=== PATIENT | female | born 1955 | race Caucasian/White ===

== ENCOUNTER 2017-12-24 15:56 | Inpatient (IN) | payer BC, OTHER ==
[2017-12-24 16:52] LABS: ADD MAN DIFF? NO
[2017-12-24] MEDS: IV NORMAL SALINE 1000ML BAG 1,000 ML IV (16:52)
[2017-12-24 16:56] LABS: BASO # 0.1 x10^3/uL (0.0-0.2); BASO % 1 % (0-3); EOS # 0.3 x10^3/uL (0.0-0.7); EOS % 5 % (0-3); HEMATOCRIT 37.2 % (36.0-47.0); HEMOGLOBIN 12.4 g/dL (12.0-15.5); LYMPH # 0.6 x10^3/uL (1.0-4.8); LYMPH % 12 % (24-48); MEAN CORPUSCULAR HEMOGLOBIN 31 pg (25-35); MEAN CORPUSCULAR HGB CONC 33 g/dL (31-37); MEAN CORPUSCULAR VOLUME 93 fL (79-100); MONO # 0.4 x10^3/uL (0.0-1.1); MONO % 8 % (0-9); NEUT # 3.8 x10^3uL (1.8-7.7); NEUT % 74 % (31-73); PLATELET COUNT 276 x10^3/uL (140-400); RED BLOOD COUNT 4.02 x10^6/uL (3.50-5.40); RED CELL DISTRIBUTION WIDTH 14.1 % (11.5-14.5); WHITE BLOOD COUNT 5.1 x10^3/uL (4.0-11.0)
[2017-12-24 17:05] LABS: PARTIAL THROMBOPLASTIN TIME 31 SEC (24-38)
[2017-12-24 17:09] LABS: ANION GAP 9 (6-14); BLOOD UREA NITROGEN 16 mg/dL (7-20); BUN/CREATININE RATIO 18 (6-20); CALCIUM 9.3 mg/dL (8.5-10.1); CARBON DIOXIDE 27 mmol/L (21-32); CHLORIDE 100 mmol/L (98-107); CREATININE 0.9 mg/dL (0.6-1.0); GFR 63.9; GLUCOSE 111 mg/dL (70-99); POTASSIUM 4.8 mmol/L (3.5-5.1); SODIUM 136 mmol/L (136-145)
[2017-12-24 17:15] LABS: ALBUMIN 2.8 g/dL (3.4-5.0); ALBUMIN/GLOBULIN RATIO 0.7 (1.0-1.7); ALK PHOS 107 U/L (46-116); ALT (SGPT) 22 U/L (14-59); AST (SGOT) 24 U/L (15-37); TOTAL BILIRUBIN 0.6 mg/dL (0.2-1.0); TOTAL PROTEIN 6.9 g/dL (6.4-8.2)
[2017-12-24 17:39] LABS: BILIRUBIN,URINE NEGATIVE (NEG); CLARITY,URINE CLEAR; COLOR,URINE YELLOW; GLUCOSE,URINE NEGATIVE (NEG); NITRITE,URINE NEGATIVE (NEG); PROTEIN,URINE NEGATIVE (NEG-TRACE); UROBILINOGEN,URINE 0.2 mg/dL (0.2 mg/dL)
[2017-12-24 17:59] LABS: BARBITURATES NEG (NEG); BENZODIAZEPINES POS (NEG); CANNABINOIDS NEG (NEG); COCAINE NEG (NEG); METHADONE NEG (NEG); OPIATES POS (NEG); PHENCYCLIDINE NEG (NEG)
[2017-12-24 18:01] LABS: AMPHETAMINE/METHAMPHETAMINE NEG (NEG); ETHANOL, URINE NEG (NEG)
[2017-12-24 18:30] LABS: AMORPHOUS SEDIMENT,UR PRESENT /HPF; BACTERIA,URINE 0 /HPF (0-FEW); HYALINE CASTS, URINE FEW /HPF; RBC,URINE 0 /HPF (0-2); SQUAMOUS EPITHELIAL CELL,UR OCC /LPF; WBC,URINE RARE /HPF (0-4)
[2017-12-24] MEDS ORDERED: ACETAMINOPHEN 325 MG TABLET. PO (21:00)
[2017-12-24] MEDS ORDERED: ONDANSETRON PF 4 MG/2 ML VIAL. IV (21:00)
[2017-12-25] MEDS: IV NORMAL SALINE 1000ML BAG 1,000 ML IV ×2 (00:05→14:47)
[2017-12-25] MEDS: HYDROcodone/APAP 10/325 1 TAB TABLET PO ×3 (00:05→21:05)
[2017-12-25 05:53] LABS: ADD MAN DIFF? NO
[2017-12-25 06:09] LABS: BASO % 1 % (0-3); EOS # 0.2 x10^3/uL (0.0-0.7); EOS % 6 % (0-3); HEMATOCRIT 32.8 % (36.0-47.0); HEMOGLOBIN 11.2 g/dL (12.0-15.5); LYMPH # 0.8 x10^3/uL (1.0-4.8); LYMPH % 20 % (24-48); MEAN CORPUSCULAR HEMOGLOBIN 32 pg (25-35); MEAN CORPUSCULAR HGB CONC 34 g/dL (31-37); MEAN CORPUSCULAR VOLUME 93 fL (79-100); MONO # 0.4 x10^3/uL (0.0-1.1); MONO % 10 % (0-9); NEUT # 2.4 x10^3uL (1.8-7.7); NEUT % 62 % (31-73); PLATELET COUNT 243 x10^3/uL (140-400); RED BLOOD COUNT 3.54 x10^6/uL (3.50-5.40); RED CELL DISTRIBUTION WIDTH 14.1 % (11.5-14.5); WHITE BLOOD COUNT 3.9 x10^3/uL (4.0-11.0)
[2017-12-25 06:25] LABS: ANION GAP 7 (6-14); BLOOD UREA NITROGEN 11 mg/dL (7-20); CALCIUM 9.3 mg/dL (8.5-10.1); CARBON DIOXIDE 27 mmol/L (21-32); CHLORIDE 102 mmol/L (98-107); CREATININE 0.8 mg/dL (0.6-1.0); GFR 73.2; GLUCOSE 91 mg/dL (70-99); POTASSIUM 3.9 mmol/L (3.5-5.1); SODIUM 136 mmol/L (136-145)
[2017-12-25] MEDS ORDERED: NON FORMULARY ITEM (Albuterol Sulfate (Proair Hfa Inhaler) 1 PUFF) INH (16:45)
[2017-12-25] MEDS ORDERED: ACETAMINOPHEN 325 MG TABLET. PO (16:45)
[2017-12-25] MEDS ORDERED: ALBUTEROL SULFATE 2.5 MG/3 ML NEBU. NEB (17:00)
[2017-12-25] MEDS: POTASSIUM CHLORIDE 10 MEQ TABLET.ER. PO (18:00)
[2017-12-25] MEDS: LETROZOLE 2.5 MG TABLET. PO (18:01)
[2017-12-25] MEDS: traZODone 50 MG TABLET. PO (21:05)
[2017-12-25] MEDS: ALPRAZolam 1 MG TABLET PO (21:05)
[2017-12-25] MEDS: QUEtiapine 25 MG TABLET. PO (21:05)
[2017-12-25] MEDS: hydrOXYzine PAMOATE 25 MG CAPSULE PO (21:08)
[2017-12-25 22:16] LABS: MRSA BY PCR Negative (Negative)
[2017-12-26 04:55] LABS: ANION GAP 10 (6-14); BLOOD UREA NITROGEN 10 mg/dL (7-20); CARBON DIOXIDE 26 mmol/L (21-32); CHLORIDE 104 mmol/L (98-107); CREATININE 0.7 mg/dL (0.6-1.0); GFR 85.4; GLUCOSE 83 mg/dL (70-99); POTASSIUM 4.1 mmol/L (3.5-5.1); SODIUM 140 mmol/L (136-145)
[2017-12-26 09:37] LABS: ADD MAN DIFF? NO
[2017-12-26] MEDS: QUEtiapine 25 MG TABLET. PO (09:39)
[2017-12-26] MEDS: traZODone 50 MG TABLET. PO (09:39)
[2017-12-26] MEDS: HYDROcodone/APAP 10/325 1 TAB TABLET PO (09:39)
[2017-12-26] MEDS: hydrOXYzine PAMOATE 25 MG CAPSULE PO (09:39)
[2017-12-26] MEDS: POTASSIUM CHLORIDE 10 MEQ TABLET.ER. PO (09:41)
[2017-12-26] MEDS: LETROZOLE 2.5 MG TABLET. PO (09:41)
[2017-12-26 09:42] LABS: BASO % 1 % (0-3); EOS # 0.2 x10^3/uL (0.0-0.7); EOS % 6 % (0-3); HEMATOCRIT 36.9 % (36.0-47.0); HEMOGLOBIN 12.4 g/dL (12.0-15.5); LYMPH # 0.9 x10^3/uL (1.0-4.8); LYMPH % 22 % (24-48); MEAN CORPUSCULAR HEMOGLOBIN 32 pg (25-35); MEAN CORPUSCULAR HGB CONC 34 g/dL (31-37); MEAN CORPUSCULAR VOLUME 95 fL (79-100); MONO # 0.4 x10^3/uL (0.0-1.1); MONO % 11 % (0-9); NEUT # 2.4 x10^3uL (1.8-7.7); NEUT % 61 % (31-73); PLATELET COUNT 249 x10^3/uL (140-400); RED BLOOD COUNT 3.88 x10^6/uL (3.50-5.40); RED CELL DISTRIBUTION WIDTH 14.2 % (11.5-14.5)
[2017-12-28] MEDS ORDERED: ERGOCALCIFEROL (VITAMIN D2) 50,000 UNIT CAPSULE. PO (09:00)
== END 2017-12-26 15:40 | disposition home or self-care (01) | DRG 598 ==
LOC: ER 15:56 → 6 SOUTH 19:15
DX: C50.911 Malignant neoplasm of unspecified site of right female breast (principal); C79.51 Secondary malignant neoplasm of bone; F20.9 Schizophrenia, unspecified; R29.6 Repeated falls; W19.XXXA Unspecified fall, initial encounter; Z83.3 Family history of diabetes mellitus; Z90.89 Acquired absence of other organs; Z88.8 Allergy status to other drugs, medicaments and biological substances; Z17.0 Estrogen receptor positive status [ER+]; Y92.129 Unspecified place in nursing home as the place of occurrence of the external cause; Y93.89 Activity, other specified; Y99.8 Other external cause status; Z79.811 Long term (current) use of aromatase inhibitors
CPT/HCPCS: 36415; 70450; 72125; 80048; 80053; 80307; 81001; 83735; 85025; 85610; 85730; 87641; 93005; 96360; 96361; 99285; 99285-25; J7030; Q0177

== ENCOUNTER 2019-01-09 03:35 | Emergency (ER) | payer MEDICARE, MEDICAID ==
[~2019-01-09] VITALS: Ht 152.4 cm; Wt 173.3 kg
[~2019-01-09 03:35] MED LIST: ACET325T9 PO; ALBU2.5V8 INH; ALPR1TAB2 PO; ERGO500027 PO; HYDR-2769 PO; HYDR25TA PO; LETROZOLE2.5 MG PO; POTA10TA12 PO; QUET50TA5 PO; TRAZ-118 PO
--- NOTE | 2019-01-09 03:48 | PHYS DOC ---
Past Medical History Past Medical History: Cancer, Schizophrenia Additional Past Medical Histor: STAGE 4 BREAST CANCER Past Surgical History: Tonsillectomy, Other Additional Past Surgical Histo: lumpectomy to right breast not cancer related Alcohol Use: None Drug Use: None Adult General Chief Complaint Chief Complaint: MECHANICAL FALL HPI HPI Patient is a 63 year old female who presents with left knee pain. Patient states that she was having a bowel movement prior to arrival, went to get up, and fell. Patient states that she injured her left knee when she sustained the fall as her left leg was wedged between the toilet and the wall and she had to call for help to get up. Patient states that EMS gave her Fentanyl for her left knee pain and subsequently brought her to the ED for evaluation. Patient denies having any pain now. Patient denies head trauma and loss of consciousness. Patient does not have any other complaints. Review of Systems Review of Systems Constitutional: Denies fever or chills Eyes: Denies change in visual acuity or eye pain HENT: Denies nasal congestion or sore throat Respiratory: Denies cough or shortness of breath Cardiovascular: Denies chest pain or palpitations GI: Denies abdominal pain, nausea, vomiting, or diarrhea : Denies dysuria or hematuria Musculoskeletal: Denies back pain. Reports chronic joint pain. Integument: Denies rash or skin lesions Neurologic: Denies headache, focal weakness or sensory changes Complete systems were reviewed and found to be within normal limits, except as documented in this note. Current Medications Current Medications Current Medications Medications (Trade) Dose Ordered Sig/[facility] Start Time Stop Time Status Last Admin Dose Admin Fentanyl Citrate (Fentanyl 2ml Vial) 50 mcg 1X ONCE 01/09/19 04:00 01/09/19 04:00 DC Ketorolac Tromethamine (Toradol 30mg Vial) 30 mg 1X ONCE 01/09/19 04:00 01/09/19 04:00 DC Ondansetron HCl (Zofran Odt) 4 mg 1X ONCE 01/09/19 04:00 01/09/19 04:00 DC Allergies Allergies Allergies Coded Allergies Type Severity Reaction Last Updated Verified gabapentin Allergy Intermediate 12/24/17 Yes naproxen Allergy Intermediate heart palpations 08/02/15 Yes povidone-iodine Allergy Intermediate 12/24/17 Yes soap Allergy Intermediate 12/24/17 Yes tramadol Allergy Intermediate 12/24/17 Yes Physical Exam Physical Exam Constitutional: awake, alert, and in no acute distress HENT: Normocephalic, atraumatic, oropharynx moist, nose normal. Eyes: PERRL, conjunctiva normal, no discharge. Neck: Normal range of motion, supple, no stridor. Cardiovascular: Heart rate regular rhythm, no murmur Lungs & Thorax: Bilateral breath sounds clear to auscultation Abdomen: Obese. Soft, no tenderness on palpation. Skin: Warm, dry, no rash. Back: No tenderness, no CVA tenderness. Extremities: tenderness of left distal femur which is chronic per patient, ROM intact, chronic anasarca noted. BLE edema 4+ Neurologic: Alert and oriented X 3, normal motor function, normal sensory function, no focal deficits noted. Psychologic: Affect normal. Speech normal. Current Patient Data Vital Signs Vital Signs Date Time Temp Pulse Resp B/P (MAP) Pulse Ox O2 Delivery O2 Flow Rate FiO2 01/09/19 04:10 98.1 93 14 188/94 (125) 96 Room Air 98.1 EKG EKG [] Radiology/Procedures Radiology/Procedures left knee x-ray does not reveal any acute fracture or dislocation; chronic arthritis noted with decreased joint space (preliminary interpretation by ED physician) Course & Med Decision Making Course & Med Decision Making Patient is a 63 year old female who presents to the ED for left knee pain. Hx of chronic left knee pain due to known metastatic breast CA. Patient previously receive pain control. Left knee x-ray performed and does not reveal any acute abnormality. Patient is stable for discharge neck to [facility]. Diagnostic findings and plan discussed with the patient who verbalized understanding and agreed. Dragon Disclaimer Dragon Disclaimer This electronic medical record was generated, in whole or in part, using a voice recognition dictation system. Departure Departure Impression: Primary Impression: Fall Additional Impressions: Chronic knee pain History of cancer metastatic to bone Disposition: HOME, SELF-CARE Condition: STABLE Referrals: NO PCP (PCP) Patient Instructions: Chronic Pain, Fall Prevention in Hospitals, Knee Pain, [id number] Additional Instructions: Continue previously prescribed pain medications as needed. Problem Qualifiers Primary Impression: Fall Encounter type: initial encounter Qualified Codes: W19.XXXA - Unspecified fall, initial encounter Additional Impressions: Chronic knee pain Laterality: left Qualified Codes: M25.562 - Pain in left knee; G89.29 - Other chronic pain STORMY TIPTON DO Jan 09, 2019 03:48
[2019-01-09] MEDS ORDERED: KETOROLAC 30 MG/ML VIAL. IM ONE (04:00)
[2019-01-09] MEDS ORDERED: fentaNYL PF VIAL 100 MCG/2 ML VIAL IM ONE (04:00)
[2019-01-09] MEDS ORDERED: ONDANSETRON ODT 4 MG TAB.RAPDIS. PO ONE (04:00)
[2019-01-09 05:15] VITALS: BP 161/98
--- NOTE | 2019-01-09 08:39 | RAD ---
3 view study of the left knee Clinical indications: Left knee pain after a fall FINDINGS: No acute fracture or lytic process is seen. There is tricompartmental primary degenerative osteoarthritis of the left knee most severely involving the medial tibiofemoral joint compartment with loss of joint space and [id number] interface here. No significant knee joint effusion is seen radiographically. There is lateral subluxation of the tibia with respect to the femur. IMPRESSION: No acute fracture. Tricompartmental primary degenerative osteoarthritis of the left knee most severely involving the medial tibiofemoral joint compartment with [id number] interface and lateral subluxation of the tibia with respect to the femur. Electronically signed by: Tony Zepeda MD (01/09/2019 8:35 AM) [id number]
== END 2019-01-09 05:30 | disposition home or self-care (01) ==
LOC: ER 03:35
DX: G89.29 Other chronic pain (principal); M25.562 Pain in left knee; C79.51 Secondary malignant neoplasm of bone; G89.11 Acute pain due to trauma; M17.12 Unilateral primary osteoarthritis, left knee; F20.9 Schizophrenia, unspecified; Z88.5 Allergy status to narcotic agent; Z88.6 Allergy status to analgesic agent; Z91.041 Radiographic dye allergy status; Z88.8 Allergy status to other drugs, medicaments and biological substances; W18.39XA Other fall on same level, initial encounter; Y93.89 Activity, other specified; Y92.121 Bathroom in nursing home as the place of occurrence of the external cause; Y99.8 Other external cause status
CPT/HCPCS: 73562; 99284